=== PATIENT | female | born 1955 | race Caucasian/White ===

== ENCOUNTER 2016-12-27 11:10 | Outpatient (CLI) | payer OTHER ==
[~2016-12-27 11:10] MED LIST: ATORVASTATIN CA40 MG PO; HYDROCHLOROTHIA25 MG PO; PROAIR HFA IN
--- NOTE | 2016-12-27 13:20 | DIAGNOSTIC IMAGING REPORT ---
PROCEDURE: MG UNILATERAL DIAG-LT W/CAD INDICATION: Follow-up left breast nodularity. TECHNIQUE: CC, MLO and true-lateral digital views of left breast. In addition, spot compression CC and MLO views were obtained of the lateral central left breast (region of clinical concern). Finally, high-resolution left breast ultrasound was performed (18 mHz). COMPARISON: Comparison is made to left mammogram left breast ultrasound (05/26/2016), and screening mammogram studies (05/13/2016, 06/06/2015, 2013). FINDINGS: MAMMOGRAM: Computer-aided detection applied. Moderately dense and mildly nodular parenchymal pattern. A few dystrophic calcifications. No evidence of mass or architectural distortion. BREAST ULTRASOUND: Normal parenchyma with 4 mm normal intramammary lymph node in the upper outer left breast (incidental finding). IMPRESSION: 1. Negative left mammogram and negative left breast ultrasound. 2. Findings discussed with the patient. 3. Resume routine screening schedule (April 2017). RESULT CODE: 2- Benign finding(s). A. A negative report should not delay biopsy if a dominant or clinically suspicious mass is present. 10-15% of cancers are not identified by x-ray. B. A negative report may reinforce clinical impression. C. Adenosis and dense breasts may obscure an underlying neoplasm. D. False positive reports average 6-10%. E.. A yearly screening mammogram is recommended. A reminder letter will be scheduled.
== END 2016-12-27 23:00 ==
LOC: MAM SRH 11:10
DX: N63 Unspecified lump in breast (principal)